=== PATIENT | male | born 1995 | race African-American/Black ===

== ENCOUNTER 2016-03-03 03:10 | Emergency (ER) | payer OTHER ==
[~2016-03-03 03:10] MED LIST: NOHOMEMEDS
== END 2016-03-03 09:13 ==
LOC: TRA 03:10 → EDBD 03:10 → TRA 03:10
PROC: 0W9930Z Drainage of Right Pleural Cavity with Drainage Device, Percutaneous Approach (ICD-10-PCS; principal; 2016-03-03)
PROC: 0W9B30Z Drainage of Left Pleural Cavity with Drainage Device, Percutaneous Approach (ICD-10-PCS; principal; 2016-03-03)
DX: S21.30 Unspecified open wound of front wall of thorax with penetration into thoracic cavity (principal); S41.002A Unspecified open wound of left shoulder, initial encounter; S51.802A Unspecified open wound of left forearm, initial encounter; S27.2XXA Traumatic hemopneumothorax, initial encounter; I46.9 Cardiac arrest, cause unspecified
CPT/HCPCS: 71010; 80048; 81003; 82150; 83690; 85025; 86850; 86900; 86901; 99281; 99284; G0480